=== PATIENT | female | born 1980 | race African-American/Black ===

== ENCOUNTER 2019-10-31 20:10 | Emergency (ER) | payer MEDICAID, SELFPAY ==
[2019-10-31 20:10] VITALS: BP 187/127; PULSE 88; RESP 20; O2SAT 100; BMI 25.7
--- NOTE | 2019-10-31 20:21 | HMH.EDUTC ---
[facility] [place] Clinical Impression: Low back pain Qualifiers: Chronicity: unspecified Back pain laterality: right Sciatica presence: with sciatica Sciatica laterality: sciatica of right side Qualified Code(s): M54.41 - Lumbago with sciatica, right side Hypertension Qualifiers: Hypertension type: essential hypertension Qualified Code(s): I10 - Essential (primary) hypertension Disposition: Home, Self-Care Condition on Discharge: Good Instructions: DI for Back Pain With Sciatica Additional Instructions: Go home and rest. It would be best if you rested tomorrow too. No heavy lifting. No twisting. Take the oral medications as directed. The muscle relaxer (robaxin) will make you drowsy, so don't drive or operate heavy machinery after taking it. Don't start the oral steroids (medrol dose pack) until tomorrow, since you had the shots in here today. Follow up with your regular doctor. GO TO THE ER FOR ANY WORSENING SYMPTOMS OR CONCERN, ESPECIALLY BOWEL OR BLADDER ISSUES, SADDLE AREA NUMBNESS, FEVER, ETC Prescriptions: Losartan/Hydrochlorothiazide [Losartan-Hctz 50-12.5 mg Tab] 1 each PO DAILY 30 Days #30 tab Transmission Status: Received by [facility] methylPREDNISolone [Medrol] 4 mg PO DIRECTED 6 Days #21 tab.ds.pk Transmission Status: Received by [facility] Methocarbamol [Robaxin 500mg Tab] 500 mg PO BIDP PRN #30 tab PRN Reason: Muscle Spasm Transmission Status: Received by [facility] Referrals: Eleuterio Tipton MD [Primary Care Provider] - Forms: Work/School Release Time of Disposition: 20:38 Medical Decision Making - Medical Records Medical records reviewed: No: I reviewed the patient's medical records. - Ji Inquiry Pt receiving controlled substance: No Vital Signs: 10/31/19 20:10 10/31/19 20:48 Temperature 98.0 F Temperature Source Oral Pulse Rate 88 Pulse Rate [Radial] 88 Respiratory Rate 20 20 Blood Pressure 187/127 H Blood Pressure [Right Arm] 187/127 H Blood Pressure Mean [Right Arm] 147 Blood Pressure Source Automatic Cuff Blood Pressure Source [Right Arm] Automatic Cuff Blood Pressure Position Sitting Blood Pressure Position [Right Arm] Sitting 02 Sat by Pulse Oximetry 100 Oxygen Delivery Method Room Air Room Air - Lab Data Lab results reviewed: Yes: I reviewed the patient's lab results. Orders (Tests/Meds): ED MEDICATIONS Discontinued Medications Generic Name Dose Route Start Last Admin Trade Name Chapin PRN Reason Stop Dose Admin Methylprednisolone Sodium Succinate 125 mg 10/31/19 20:35 10/31/19 20:38 Solu-Medrol 125mg/2ml Vial IM 10/31/19 20:36 125 mg ONCE ONE Administration [facility] [place] HPI - General Stated complaint: R hip and leg pain Time Seen by Provider: 10/31/19 20:22 - History of Present Illness Provider Complaint: She c/o low back pain that radiates down her right leg. She has a history of similar flare ups in the past. She denies any fall or recent injury. - Related Data Previous Rx's Medication Instructions Recorded Losartan/Hydrochlorothiazide 1 each PO DAILY 30 Days #30 tab 02/20/19 [Losartan-Hctz 50-12.5 mg Tab] predniSONE [Prednisone 50mg Tab] 50 mg PO DAILY 5 Days #5 tab 02/20/19 Losartan/Hydrochlorothiazide 1 each PO DAILY 30 Days #30 tab 10/31/19 [Losartan-Hctz 50-12.5 mg Tab] Methocarbamol [Robaxin 500mg Tab] 500 mg PO BIDP PRN #30 tab 10/31/19 methylPREDNISolone [Medrol] 4 mg PO DIRECTED 6 Days #21 10/31/19 tab.ds.pk Allergies Allergy/AdvReac Type Severity Reaction Status Date / Time acetaminophen Allergy Unknown I-RASH Verified 02/20/19 00:09 [From [facility]] amoxicillin [AMOXICILLIN] Allergy Unknown NAUSEA, Verified 02/20/19 00:09 RASH codeine [CODEINE] Allergy Unknown NAUSEA, Verified 02/20/19 00:09 RASH gabapentin [GABAPENTIN] Allergy Unknown Verified 02/20/19 00:09 ibuprofen [IBUPROFEN] Allergy Unknown I-RASH Verified 02/20/19 00:09 ket
[2019-10-31 20:48] VITALS: BP 187/127; PULSE 88; RESP 20; TEMP 36.7; O2SAT 100
== END 2019-10-31 20:49 | disposition home or self-care (01) ==
PROVIDERS: Emergency Provider Nurse Practitioner Family; PCP Emergency Medicine
DX: M54.41 Lumbago with sciatica, right side (principal); I10 Essential (primary) hypertension; F41.8 Other specified anxiety disorders; F17.210 Nicotine dependence, cigarettes, uncomplicated; Z88.0 Allergy status to penicillin; Z88.5 Allergy status to narcotic agent; Z88.8 Allergy status to other drugs, medicaments and biological substances
CPT/HCPCS: 96372; 99201

== ENCOUNTER 2020-09-01 04:00 | Emergency (ER) | payer MEDICAID, SELFPAY ==
--- NOTE | 2020-09-01 04:02 | PC.NURSE ---
PT IN ED. TRANSFERRED TO BED, PLACED ON CARDIAC ZOLL MONITOR; ASYSTOLE NOTED, CPR INITIATED PER STAFF.
--- NOTE | 2020-09-01 04:03 | PC.NURSE ---
FSBS 66 MG/DL
--- NOTE | 2020-09-01 04:04 | PC.NURSE ---
PT REMAINS IN ASYSTOLE
--- NOTE | 2020-09-01 04:06 | PC.NURSE ---
cpr continues, suctioned approx 200 ml of brown liquid out of airway
--- NOTE | 2020-09-01 04:08 | PC.NURSE ---
zoll reveals v-fib. charged to 120J, shock applied. no response. cpr continued
--- NOTE | 2020-09-01 04:09 | PC.NURSE ---
intubation attempted per dr bello, cpr continues
--- NOTE | 2020-09-01 04:11 | PC.NURSE ---
pt remains in asystole, cpr continues
--- NOTE | 2020-09-01 04:13 | PC.NURSE ---
zoll reveals vfib. charged to 150 J. shocked. PEA noted. NG placed to left nare at 64cm. cpr continues
--- NOTE | 2020-09-01 04:16 | PC.NURSE ---
pt remains asystole. no pulse noted. time of [id number]
--- NOTE | 2020-09-01 04:21 | HMH.EDGENADL ---
ED Disposition Clinical Impression: Cardiac arrest Disposition: Condition on Discharge: - Critical Care Critical Care Time: Yes Attestation: On , the high probability of a clinically significant, sudden or life threatening deterioration of the following system(s) required my full and direct attention, intervention and personal management. The time I documented below is in addition to time spent performing reported procedures but includes the following listed in this critical care notation. Total Critical Care Time: 14 Vital system(s) involved:: Circulatory Failure, Respiratory Failure My critical care processes included: Assessment & monitoring of V/S, Initial and Re-exams, Data Review/Interpretation, Coordinating Care, Medication Orders and management, Documentation Probable Cause of : Cardiac arrest Medical Decision Making - Ji Inquiry Pt receiving controlled substance: No Medical Decision Narrative: Resuscitation: CPR and ventilations continued. Epinephrine and bicarbonate administered. Initial attempted intubation with glide scope after suction of vomitus. Vomitus reaccumulated. 2 attempts made with glide scope but unable to visualize due to vomitus. Subsequently intubated using standard laryngoscope. 2 episodes of ventricular fibrillation treated with defibrillation with subsequent asystole. Brief episode of PEA with organized cardiac rhythm obtained without pulse, but deteriorated to asystole again within a few seconds. Despite all efforts the patient deteriorated again to asystole and therefore was pronounced 04:16 General Adult HPI - General Chief complaint: Cardiac Arrest/CPR Stated complaint: cardiac arrest Time Seen by Provider: 09/01/20 04:02 - History of Present Illness HPI narrative: Brought in by ambulance with CPR in progress. nuclear medicine officer reports that they received a call at 3:32 AM. He says the patient had been brought outside by her boyfriend who reported to him that the patient had been down for 10 minutes. He says he felt a faint pulse when he arrived. Narcan was administered without effect. EMS arrived a short time later and found the patient in asystole. CPR was started. Copious amounts of vomit in the oropharynx. Epinephrine administered prior to arrival without effect. - Related Data Previous Rx's Medication Instructions Recorded Losartan/Hydrochlorothiazide 1 each PO DAILY 30 Days #30 tab 02/20/19 [Losartan-Hctz 50-12.5 mg Tab] predniSONE [Prednisone 50mg Tab] 50 mg PO DAILY 5 Days #5 tab 02/20/19 Losartan/Hydrochlorothiazide 1 each PO DAILY 30 Days #30 tab 10/31/19 [Losartan-Hctz 50-12.5 mg Tab] Methocarbamol [Robaxin 500mg Tab] 500 mg PO BIDP PRN #30 tab 10/31/19 methylPREDNISolone [Medrol] 4 mg PO DIRECTED 6 Days #21 10/31/19 tab.ds.pk Allergies Allergy/AdvReac Type Severity Reaction Status Date / Time acetaminophen Allergy Unknown I-RASH Verified 02/20/19 00:09 [From DARVOCET-N] amoxicillin [AMOXICILLIN] Allergy Unknown NAUSEA, Verified 02/20/19 00:09 RASH codeine [CODEINE] Allergy Unknown NAUSEA, Verified 02/20/19 00:09 RASH gabapentin [GABAPENTIN] Allergy Unknown Verified 02/20/19 00:09 ibuprofen [IBUPROFEN] Allergy Unknown I-RASH Verified 02/20/19 00:09 ketorolac [KETOROLAC] Allergy Unknown I-HIVES Verified 02/20/19 00:09 naproxen [NAPROXEN] Allergy Unknown I-HIVES Verified 02/20/19 00:09 Penicillins [PENICILLINS] Allergy Unknown Verified 02/20/19 00:09 propoxyphene Allergy Unknown I-RASH Verified 02/20/19 00:09 [From DARVOCET-N] tramadol [TRAMADOL] Allergy Unknown I-HIVES Verified 02/20/19 00:09 [facility] History - Hepatitis A Screen Attestation statement:: This patient has been screened for Hepatitis A risk factors. - Social History Smoking Status: Current every day smoker Tobacco Type: cigarettes # Packs/Day (cigarettes): 1 Alcohol Intake: never Occupational Status: other Ho
[2020-09-01 04:40] VITALS: BMI 21.9
--- NOTE | 2020-09-01 04:45 | PC.NURSE ---
BONNIE notified at 0435. Pt ruled out. ID number [id number]. This RN spoke with Rosa Medeiros
--- NOTE | 2020-09-01 04:47 | PC.NURSE ---
Baldomero Nguyen notified at 0444 of case.
--- NOTE | 2020-09-01 04:52 | PC.NURSE ---
next of kin, mother, serona at bedside with friend and notified. larissa akins present.
--- NOTE | 2020-09-01 06:09 | PC.NURSE ---
3 family members have arrived to visit with pt
[2020-09-01 06:31] VITALS: BP 0/0; PULSE 0; RESP 0; TEMP -17.7; TEMP 0; O2SAT 0
--- NOTE | 2020-09-01 07:05 | PC.NURSE ---
akins left with pt
[2020-10-29 09:54] LABS: POC Glucose,Bedside 66 (70-110)
== END 2020-09-01 07:05 | disposition expired ==
PROVIDERS: Emergency Provider Emergency Medicine
DX: I46.9 Cardiac arrest, cause unspecified (principal); I10 Essential (primary) hypertension; Z88.5 Allergy status to narcotic agent; Z88.6 Allergy status to analgesic agent; Z88.0 Allergy status to penicillin; F17.210 Nicotine dependence, cigarettes, uncomplicated
CPT/HCPCS: 31500; 82962; 96375; 99282; J2310